=== PATIENT | male | born 1980 | race Two or more races ===

== ENCOUNTER 2022-02-20 20:58 | Emergency (ER) | payer OTHER ==
[~2022-02-20] VITALS: Ht 170.2 cm; Wt 83.9 kg
[2022-02-20] MEDS ORDERED: LIDOCAINE VISCOUS 2% UD 15 ML UDC MM ONE (23:00)
[2022-02-20] MEDS ORDERED: MAG HYDROX/AL HYDROX/SIMETH 30 ML UDC PO ONE (23:00)
--- NOTE | 2022-02-20 23:00 | NUR ---
TO ER BED 1. BIBSELF C/O ABD PAIN X 3 HRS NON RAD. PT TOOK ADVIL W/ NO RELIEF. DENIES N/V. PT IS ALERT AND ORIENTED. RR EVEN AND NON LABORED. CONNECTED TO MONITOR. AWAITING MD ORDERS
[2022-02-20] MEDS ORDERED: LIDOCAINE VISCOUS 2% UD 15 ML UDC ONE (23:05)
[2022-02-20] MEDS ORDERED: MAG HYDROX/AL HYDROX/SIMETH 30 ML UDC ONE (23:05)
[2022-02-20] MEDS ORDERED: PANT40TA2 PO (23:30)
--- NOTE | 2022-02-20 23:34 | NUR ---
Patient discharged to home in stable condition. Written and verbal after care instructions given. Patient verbalizes understanding of instruction.
[2022-02-20 23:35] VITALS: BP 134/76
== END 2022-02-20 23:36 | disposition home or self-care (01) ==
LOC: EDBD 21:00 → ER 21:00
DX: K21.9 Gastro-esophageal reflux disease without esophagitis (principal); Z60.2 Problems related to living alone; Z79.899 Other long term (current) drug therapy